=== PATIENT | male | born 1970 | race Caucasian/White ===

== ENCOUNTER 2017-03-25 20:07 | Emergency (ER) | payer BC ==
[~2017-03-25] VITALS: Ht 170.1 cm; Wt 90.7 kg
[~2017-03-25 20:07] MED LIST: ACIPHEX20 MG PO; AMOXICILLIN500 M2 PO; ATIVAN1 MG PO; Aciphex20 MG PO; FLONASE ALLERG9.9 ML NAS; MEDROL DOSEPAK4 MG PO; MOTRIN800 MG PO; PRILOSEC20 MG PO; ZOLOFT100 MG PO; ZYRTEC10 MG PO
[2017-03-25] MEDS ORDERED: PREDNISONE10 MG PO (22:23)
== END 2017-03-25 23:31 | disposition home or self-care (01) ==
LOC: ED 20:07
DX: R22.0 Localized swelling, mass and lump, head (principal); Z79.899 Other long term (current) drug therapy

== ENCOUNTER 2018-06-25 07:13 | Inpatient (IN) | payer OTHER ==
[2018-06-25] VITALS (9 sets, daily range): BP systolic 110–146; BP diastolic 59–84
[~2018-06-25] VITALS: Ht 167.6 cm; Wt 100.8 kg
--- NOTE | ~2018-06-25 | EKG ---
[place], [place] ELECTROCARDIOGRAM REPORT NAME: SJ MCCORMACK UNIT #: [id number] ROOM: [facility] DOCTOR: JULIAN DRAFT REPORT BIRTHDATE: [birth year] 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
--- NOTE | ~2018-06-25 | WRIGHTHP ---
[place], [place] PATIENT HISTORY AND PHYSICAL EXAM NAME: SJ MCCORMACK [facility] #: [id number] UNIT #: [id number] ROOM: [facility] DOCTOR: STACEY LANDIS MD BIRTHDATE: [birth year] DOS: 06/25/2018 HISTORY OF PRESENT ILLNESS: The patient has been admitted to the hospital with acute difficulty in breathing. The patient slept very comfortably last night, but woke up as if his throat was closing on him and he came to the Emergency Department from where he was admitted to hospital possibly with the angioneurotic edema and with the treatment given in the Emergency Department, the patient is already feeling better. He is having no difficulty in breathing. He denies any chest pain, no headache, no fever or chills. He said he was feeling allright before that. 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 He has gone through this problem many times before and has been treated for angioneurotic edema as outpatient. SOCIAL HISTORY: The patient does not drink, but he rubs snuff, but does not smoke. FAMILY HISTORY: His father has significant history of heart disease, had [place] and pacemaker implant and open heart surgery when he was 57 years old. Mother is healthy. MEDICATIONS: The patient is taking Prilosec 20 mg for GERD syndrome and he takes allergy medicine on regular basis. PAST MEDICAL HISTORY: The patient has past history of chest pain, but it was noncardiac origin. ALLERGIES: No known allergy. PHYSICAL EXAMINATION: GENERAL: The patient is conscious, alert and oriented, not in any distress. VITAL SIGNS: He is 5 feet 6 inches tall, weighing 167 pounds. His blood pressure is 122/70, pulse 88, respirations 18, temperature 98.6, pulse oximetry is 96%. HEENT: Having congestion of nose and throat. There is some swelling of throat, but it is not closing and the patient is breathing very comfortably, lymph nodes are not enlarged. Ears are normal. NECK: Veins are not distended. CHEST: Clear. No creps or rhonchi. No wheezing. HEART: Regular, no murmur. ABDOMEN: Soft. Liver and spleen not palpable. No area of tenderness, no mass palpable. LABORATORY DATA: His CBC shows white count 7200, hemoglobin 15.1. Other values are fairly normal. Electrocardiogram shows multiple ventricular premature complexes, borderline abnormality. No evidence of myocardial infarction. Lactic acidosis, lactic acid 2.3. Comprehensive metabolic profile, glucose 137, calcium 8.1, C-reactive protein 0.54, which is slightly high, other values are around normal. Chest x-ray, low lung volume, but there is no acute cardiopulmonary abnormality or chest abnormality seen. Repeat lactic acid is 2, which is normal and the patient is improving and feeling better. [place], [place] PATIENT HISTORY AND PHYSICAL EXAM [facility]: [id number] UNIT #: [id number] ROOM: [facility] DOCTOR: SABIHA HENSON,STACEY Aj BIRTHDATE: [birth year] FINAL DIAGNOSES: Angioneurotic edema with gastroesophageal reflux disease syndrome with the history of snuff abuse and history of known ALLERGY TO DUST. STACEY LANDIS MD CM:HISPHYS:PATIENT HISTORY AND PHYSICAL EXAMINATION [id number] STACEY LANDIS MD 06/25/18 1405 interface
[~2018-06-25 07:13] MED LIST changes: +PREDNISONE10 MG PO
[2018-06-25 07:34] LABS: BASO % 0.3 % (0.0-1.0); EOS # 0.2 10*3/uL (0.0-0.4); HEMATOCRIT 43.3 % (42.0-52.0); HEMOGLOBIN 15.1 g/dl (14.0-18.0); LYMPH # 2.4 10*3/uL (1.3-4.4); MEAN CELL VOLUME 96.2 fl (80.0-94.0); MEAN CORPUSCULAR HGB 33.6 pg (27.0-31.0); MEAN CORPUSCULAR HGB CONC 34.9 g/dl (33.0-37.0); MEAN PLATELET VOLUME 10.7 fl (9.6-12.3); MONO # 0.5 10*3/uL (0.1-1.0); NEUT # 4.1 10*3/uL (2.3-7.9); NEUT % 56.4 % (47.0-73.0); PLATELET COUNT AUTOMATED 212 10*3/uL (130-400); RED CELL DISTRI WIDTH 13.2 % (0-14.5); WHITE BLOOD COUNT 7.2 10*3/uL (4.8-10.8)
--- NOTE | 2018-06-25 07:54 | NUR ---
PT STATES FEELING "ABOUT THE SAME". NO DISTRESS NOTED.
[2018-06-25 07:55] LABS: ALBUMIN 3.5 gm/dl (3.1-4.5); ALKALINE PHOSPHATASE 77 U/L (45-117); BUN 8 mg/dl (7-24); CHLORIDE 107 mmol/L (98-107); CREATININE 0.86 mg/dL (0.70-1.30); POTASSIUM 3.5 mmol/L (3.5-5.1); SGOT/AST 26 IU/L (3-35); SGPT/ALT 34 U/L (12-78); SODIUM 140 mmol/L (136-145); TOTAL PROTEIN 7.8 gm/dL (6.4-8.2)
[2018-06-25 08:01] LABS: TROPONIN I < 0.015 ng/ml (<0.045)
--- NOTE | 2018-06-25 09:18 | NUR ---
PT RESTING IN BED EYES CLOSED. STATES "FEEL A LITTLE BETTER".
--- NOTE | 2018-06-25 10:45 | NUR ---
A 47, admitted to [facility], under the services of LIANNE Lehman MD with a diagnosis of RESP DISTRESS W/ ANGIOEDEMA. Chief complaint is awoke with sore throat then realized that it was more than that. 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 Was OK until awoke this AM. Patient arrived via stretcher from ER. Monitor applied. Initial assessment completed. Vital signs taken and recorded. LIANNE LEHMAN MD notified of admission to the unit. Orders received. See assessment for past medical history, medications and allergies. Patient and/or family oriented to unit. [facility] visitation policy reviewed. Clothing/patient valuable form completed. RADHA GLASER
[2018-06-25] MEDS ORDERED: NEXIUM40 MG PO (11:10)
[2018-06-25] MEDS ORDERED: GOOD SENSE ALLE10 M2 PO (11:10)
[2018-06-25] MEDS ORDERED: PREDNISONE10 MG PO (11:12)
[2018-06-25] MEDS ORDERED: ZYRTEC10 MG PO (11:14)
--- NOTE | 2018-06-25 11:54 | NUR ---
DR COTO CALLED ABOUT ADMISSION - ORDERS RECEIVED
--- NOTE | 2018-06-25 19:02 | NUR ---
CHART CHECK COMPLETE.
--- NOTE | 2018-06-25 19:54 | NUR ---
PT WITHOUT COMPLAINTS OR S&S OF ANGIOEDEMA.
[2018-06-26] VITALS: BP 120/60
--- NOTE | 2018-06-26 02:40 | NUR ---
PT SLEEPING....NO DISTRESS.
[2018-06-26 04:00] VITALS: BP 98/61
--- NOTE | 2018-06-26 06:40 | NUR ---
CONTINUES TO BE FREE OF S&S OF ANGIOEDEMA.
--- NOTE | 2018-06-26 07:23 | NUR ---
Shift chart check completed.24 HR chart check completed.
[2018-06-26 07:59] LABS: HEMATOCRIT 46.1 % (42.0-52.0); HEMOGLOBIN 15.6 g/dl (14.0-18.0); MEAN CELL VOLUME 97.5 fl (80.0-94.0); MEAN CORPUSCULAR HGB CONC 33.8 g/dl (33.0-37.0); MEAN PLATELET VOLUME 10.9 fl (9.6-12.3); PLATELET COUNT AUTOMATED 226 10*3/uL (130-400); RED BLOOD COUNT 4.73 10*6/uL (4.50-5.90); RED CELL DISTRI WIDTH 13.4 % (0-14.5); WHITE BLOOD COUNT 20.6 10*3/uL (4.8-10.8)
[2018-06-26 08:00] VITALS: BP 130/70
[2018-06-26 08:11] LABS: BUN 16 mg/dl (7-24); CHLORIDE 110 mmol/L (98-107); CREATININE 1.11 mg/dL (0.70-1.30); POTASSIUM 4.2 mmol/L (3.5-5.1); SODIUM 142 mmol/L (136-145)
[2018-06-26 08:22] LABS: PLATELET SUFFICIENCY NORMAL (NORMAL); TOTAL CELLS COUNTED 100 #CELLS
--- NOTE | 2018-06-26 09:00 | NUR ---
[employer] in to talk to patient. Patient states lives at home with his and mother. There are 2 steps in the home. Physician: Dr. Parks Pharmacy: [facility] Home health services: none Patient's level of ADLs: INDEPENDENT Patient has working utilities: yes DME: none Follow-up physician's appointment after d/c: he prefers to make his own follow up appt after discharge Does patient want to access PORTAL?: no Discharge plan discussed with patient. He lives at home with his and mother. He is independent in his ADLs and ambulation. Discussed home health care services and he denies any home needs at this time. When medically stable he will be discharged to home. ROBIN VALENTE
--- NOTE | 2018-06-26 11:40 | NUR ---
PT AWAITING DISCHARGE ORDER, ANXIOUS TO GO HOME.
[2018-06-26 11:41] VITALS: BP 115/67
[2018-06-26] MEDS ORDERED: PREDNISONE10 MG PO (13:25)
[2018-06-26] MEDS ORDERED: DIPHENHYDRAMINE25 M2 PO (13:25)
[2018-06-26] MEDS ORDERED: FAMOTIDINE20 M1 PO (13:25)
[2018-06-26] MEDS ORDERED: EPIPEN 2-P0.3 MG/0.3 IJ (13:54)
--- NOTE | 2018-06-26 14:15 | NUR ---
DISCHARGE INSTRUCTIONS TO PT. MONITOR AND HEP LOCK REMOVED. PT DISCHARGED AMBULATORY IN STABLE CONDITION. HE UNDERSTANDS HE NEEDS TO CALL DR LANDIS'S OFFICE FOR FOLLOW UP AND THAT THERE ARE PRESCRIPTIONS AT [facility] FOR HIM.
== END 2018-06-26 14:24 | disposition home or self-care (01) | DRG 915 ==
LOC: ED 07:13 → EDHOLD 10:14 → ICCU 10:14
PROVIDERS: Emergency Medicine; Internal Medicine Nephrology; ADMIT Internal Medicine
DX: T78.3XXA Angioneurotic edema, initial encounter (principal); J96.01 Acute respiratory failure with hypoxia; E87.2 Acidosis; K21.9 Gastro-esophageal reflux disease without esophagitis; R79.82 Elevated C-reactive protein (CRP); D72.829 Elevated white blood cell count, unspecified; Z82.49 Family history of ischemic heart disease and other diseases of the circulatory system

== ENCOUNTER 2021-12-05 17:18 | Emergency (ER) | payer BC ==
[~2021-12-05] VITALS: Ht 170.1 cm; Wt 104.3 kg
[~2021-12-05 17:18] MED LIST changes: +DIPHENHYDRAMINE25 M2 PO; +EPIPEN 2-P0.3 MG/0.3 IJ; +FAMOTIDINE20 M1 PO; +GOOD SENSE ALLE10 M2 PO; +NEXIUM40 MG PO
[2021-12-05] MEDS ORDERED: BROMFED DM COU118 M2 PO (22:01)
[2021-12-05] MEDS ORDERED: VIBRAMYCIN100 MG PO (22:01)
== END 2021-12-05 22:04 | disposition home or self-care (01) ==
LOC: ED 17:18
DX: J20.9 Acute bronchitis, unspecified (principal); Z20.822 Contact with and (suspected) exposure to COVID-19; Z79.899 Other long term (current) drug therapy

== ENCOUNTER 2022-09-25 18:12 | Emergency (ER) | payer BC ==
[~2022-09-25] VITALS: Ht 172.7 cm; Wt 102.1 kg
[~2022-09-25 18:12] MED LIST changes: +BROMFED DM COU118 M2 PO; +VIBRAMYCIN100 MG PO
[2022-09-25] MEDS ORDERED: ZITHROMAX250 MG PO (20:21)
[2022-09-25] MEDS ORDERED: BROMFED DM COU118 M2 PO (20:22)
== END 2022-09-25 20:30 | disposition home or self-care (01) ==
LOC: ED 18:12
DX: J06.9 Acute upper respiratory infection, unspecified (principal); K21.9 Gastro-esophageal reflux disease without esophagitis; F41.9 Anxiety disorder, unspecified; Z88.8 Allergy status to other drugs, medicaments and biological substances; Z98.890 Other specified postprocedural states; F17.220 Nicotine dependence, chewing tobacco, uncomplicated; Z20.822 Contact with and (suspected) exposure to COVID-19